=== PATIENT | female | born 2000 | race African-American/Black ===

== ENCOUNTER 2024-03-29 20:30 | Emergency (ER) | payer OTHER ==
[~2024-03-29] VITALS: Ht 167.6 cm; Wt 77.0 kg
[2024-03-29 20:36] VITALS: BP 133/106; PULSE 90; RESP 20; TEMP 37.1; O2SAT 100
[2024-03-29] MEDS: ONDANSETRON HCL 4MG/2ML INJ IM ONE (22:39)
[2024-03-29 23:01] LABS: *AMPHETAMINES SCREEN URINE NEGATIVE (NEGATIVE); *BARBITURATES SCREEN URINE NEGATIVE (NEGATIVE); *BENZODIAZEPINES SCREEN URINE NEGATIVE (NEGATIVE); *COCAINE SCREEN URINE NEGATIVE (NEGATIVE); CANNABINOID URINE SCREEN NEGATIVE (NEGATIVE); METHADONE URINE SCREEN NEGATIVE (NEGATIVE); OPIATES URINE SCREEN NEGATIVE (NEGATIVE); PHENCYCLIDINE URINE SCREEN NEGATIVE (NEGATIVE)
[2024-03-29 23:02] LABS: ECSTASY MDMA SCREEN URINE NEGATIVE (NEGATIVE)
== END 2024-03-29 23:19 | disposition home or self-care (01) ==
LOC: ER 20:30
DX: F10.129 Alcohol abuse with intoxication, unspecified (principal); F19.90 Other psychoactive substance use, unspecified, uncomplicated
CPT/HCPCS: 99283; 80305; 81025; 96372; J2405